=== PATIENT | male | born 1940 | race African-American/Black ===

== ENCOUNTER 2022-06-28 11:18 | Emergency (ER) | payer OTHER ==
[~2022-06-28] VITALS: Ht 175.3 cm; Wt 141.0 kg
[~2022-06-28 11:18] MED LIST: AMLO5TAB88 PO; ATOR40TA70 PO; CARV12.545 PO; DOCU-150 PO; DULO60CA64 PO; FURO40TA5 PO; LOSA50TA3 PO; METF-414 PO; MIRT-90 PO; POTA-185 PO; RISP2TAB85 PO
[2022-06-28 11:26] VITALS: BP 165/73
[2022-06-28] MEDS ORDERED: CEPH500C2 MT (12:28)
== END 2022-06-28 17:03 | disposition home or self-care (01) ==
LOC: ER 12:09
DX: R22.41 Localized swelling, mass and lump, right lower limb (principal); E11.9 Type 2 diabetes mellitus without complications; I10 Essential (primary) hypertension; E78.00 Pure hypercholesterolemia, unspecified; Z79.84 Long term (current) use of oral hypoglycemic drugs
CPT/HCPCS: 99281

== ENCOUNTER 2023-10-24 06:36 | Emergency (ER) | payer OTHER ==
[~2023-10-24] VITALS: Ht 175.3 cm; Wt 146.0 kg
[~2023-10-24 06:36] MED LIST changes: +CEPH500C2 MT; +LOSA-413 PO; -LOSA50TA3 PO
[2023-10-24 06:38] VITALS: O2SAT 95
[2023-10-24] MEDS ORDERED: HYDROCHLOROTHIAZIDE 25MG TABLET PO ONE (07:00)
[2023-10-24] MEDS ORDERED: IBUPROFEN 600MG TABLET PO ONE (07:00)
[2023-10-24] MEDS ORDERED: FUROSEMIDE 40MG TABLET PO NR (07:15)
[2023-10-24] MEDS ORDERED: LIDOCAINE HCL 1% 20ML VIAL (Pyxis) INJ INFIL ONE (07:15)
[2023-10-24] MEDS ORDERED: DOXY100T2 MT (08:24)
[2023-10-24 09:05] VITALS: BP 170/63; PULSE 75; RESP 17; TEMP 98.1
== END 2023-10-24 09:06 | disposition home or self-care (01) ==
LOC: ER 06:36
DX: L03.116 Cellulitis of left lower limb (principal); E11.9 Type 2 diabetes mellitus without complications; I10 Essential (primary) hypertension
CPT/HCPCS: 99284; 10060; J3490

== ENCOUNTER 2023-10-26 11:51 | Emergency (ER) | payer OTHER ==
[~2023-10-26] VITALS: Ht 182.9 cm; Wt 130.0 kg
[~2023-10-26 11:51] MED LIST changes: +DOXY100T2 MT
[2023-10-26 12:03] VITALS: O2SAT 98
[2023-10-26] MEDS ORDERED: MUPI1OIN4 TP (14:47)
[2023-10-26 16:19] VITALS: BP 184/88; PULSE 70; RESP 18; TEMP 98.7
== END 2023-10-26 16:46 | disposition home or self-care (01) ==
LOC: ER 11:51
DX: Z48.00 Encounter for change or removal of nonsurgical wound dressing (principal); E11.9 Type 2 diabetes mellitus without complications; I10 Essential (primary) hypertension
CPT/HCPCS: 99282

== ENCOUNTER 2025-05-08 12:53 | Emergency (ER) | payer MEDICARE, OTHER ==
[~2025-05-08] VITALS: Ht 172.7 cm; Wt 105.0 kg
[~2025-05-08 12:53] MED LIST changes: -DOCU-150 PO; +DOCU-422 PO; +MUPI1OIN4 TP; +RISP-29 PO; -RISP2TAB85 PO
[2025-05-08 12:55] VITALS: O2SAT 99
[2025-05-08 17:57] LABS: BASOPHILS % 0.9 % (0.0-2.0); EOSINOPHILS % 3.3 % (0.0-5.0); HEMATOCRIT. 36.3 % (42.0-52.0); HEMOGLOBIN. 11.6 g/dL (14.0-18.0); LYMPHOCYTES % 39.3 % (20.0-50.0); MEAN PLATELET VOLUME 9.1 fl (7.4-10.4); MONOCYTES % 13.9 % (2.0-8.0); NEUTROPHILS % 42.6 % (40.0-76.0); PLATELET 163 x1000/uL (130-400); RED BLOOD CELL COUNT 4.41 mill/uL (4.7-6.1); RED CELL DISTRIBUTION WIDTH 16.3 % (11.6-14.6)
[2025-05-08 19:36] LABS: CREATININE 0.9 mg/dL (0.6-1.3); UREA NITROGEN BLOOD 13 mg/dL (9-23)
[2025-05-08 20:00] VITALS: TEMP 36.7
[2025-05-08] MEDS ORDERED: ACET-2708 MT (20:18)
[2025-05-08] MEDS: HYDROCODONE/ACETAMINOPHEN 5/325MG TABLET PO ONE (20:59)
[2025-05-08 23:30] VITALS: BP 173/69; PULSE 72; RESP 17; O2SAT 97
[2025-05-22] MEDS ORDERED: HYDR100T11 MT (16:24)
[2025-05-22] MEDS ORDERED: GLIM1TAB55 PO (16:29)
[2025-05-22] MEDS ORDERED: MELO-104 PO (16:31)
[2025-05-22] MEDS ORDERED: DICL75TA5 MT (16:32)
[2025-05-22] MEDS ORDERED: TIRZ7.5P (16:33)
[2025-05-22] MEDS ORDERED: FERR325T6 PO (16:34)
[2025-05-25] MEDS ORDERED: METF-414 PO (11:54)
[2025-05-25] MEDS ORDERED: RISP-29 PO (11:56)
== END 2025-05-08 23:34 | disposition home or self-care (01) ==
LOC: ER 12:53
DX: L85.3 Xerosis cutis (principal); R53.1 Weakness; E11.9 Type 2 diabetes mellitus without complications; I10 Essential (primary) hypertension; F03.90 Unspecified dementia, unspecified severity, without behavioral disturbance, psychotic disturbance, mood disturbance, and anxiety; Z79.899 Other long term (current) drug therapy
CPT/HCPCS: 36415; 80048; 85025; 93005; 99285; A4606